=== PATIENT | female | born 1960 | race Caucasian/White ===

== ENCOUNTER 2020-03-16 13:43 | Emergency (ER) | payer OTHER, SELFPAY ==
[2020-03-16] VITALS (18 sets, daily range): BP systolic 91–133; BP diastolic 60–90; PULSE 82–92; RESP 18–27; TEMP 36.4; O2SAT 90–96
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
--- NOTE | 2020-03-16 13:54 | ECG_ITS ---
Measurements Intervals [place] Rate: 63 P: 16 OK: 146 QRS: -21 QRSD: 97 T: 56 QT: 378 QTc: 388 Interpretive Statements SINUS RHYTHM LOW QRS VOLTAGE IN PRECORDIAL LEADS POOR R WAVE PROGRESSION, ANTERIOR LEADS BORDERLINE T WAVE ABNORMALITY- ANTERIOR LEADS BASELINE WANDER- V4 BORDERLINE ECG Electronically Signed On 03-16-2020 14:47:04 CDT by Sameer Li D.O.
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
[2020-03-16 14:31] LABS: Lipase 61 U/L (23-300)
[2020-03-16] MEDS: MORPHINE SULFATE 4 MG/ML INJ IV PUSH (14:35)
[2020-03-16 14:45] LABS: NT Pro B Type Natriuretic Pept 73 PG/ML (5-100); Troponin I < 0.012 ng/mL (0.000-0.034)
[2020-03-16 14:48] LABS: Basophils Absolute Auto 0.1 K/mm3 (0.0-0.1); Basophils Percent Auto 0.5 % (0.2-1.2); Eosinophils Absolute Auto 0.1 K/mm3 (0-0.3); Eosinophils Percent Auto 0.7 % (0-4.4); Hematocrit 45.7 % (37.0-47.0); Hemoglobin 14.8 g/dL (12.0-15.0); Immature Granulocyte Percent A 1.5 % (0-0.5); Lymphocytes Absolute Auto 1.01 K/mm3 (0.9-3.2); Lymphocytes Percent Auto 7.3 % (18.3-44.2); Mean Corpuscular HGB Conc 32.4 g/dl (32-36); Mean Corpuscular Hemoglobin 28.6 pg (26-34); Mean Corpuscular Volume 88.2 fl (80-100); Monocytes Absolute Auto 0.7 K/mm3 (0.1-0.6); Neutrophils Absolute Auto 11.7 K/mm3 (1.3-6.7); Platelet Count Result 267 k/mm3 (150-375); Red Blood Count 5.18 M/mm3 (4.2-5.4); Red Cell Distribution Width 12.4 % (11.5-14.5); White Blood Count 13.8 K/mm3 (4.5-10.0)
[2020-03-16 14:58] LABS: Prothrombin Time 13.1 Seconds (11.1-14.7)
[2020-03-16 15:55] LABS: Alanine Aminotransferase 28 U/L (4-35); Albumin Level 3.9 g/dL (3.5-5.1); Alkaline Phosphatase 105 U/L (38-126); Aspartate Amino Transferase 38 U/L (14-36); Bilirubin,Total 0.3 mg/dL (0.2-1.3); Blood Urea Nitrogen 15 mg/dL (7-17); Carbon Dioxide 24 mmol/L (22-30); Chloride 107 mmol/L (98-107); Estimated CRCL calculation 102 ml/min; Estimated Glomerular Filt Rate > 60; Glucose 224 mg/dL (65-105); Potassium 3.6 mmol/L (3.4-5.0); Sodium 138 mmol/L (137-145)
--- NOTE | 2020-03-19 19:28 | PC.NURSE ---
note for 03/16/2020: Pt had short R wrist splint applied. Pt circulation in tact. Pt informed on splint care.
== END 2020-03-16 19:12 | disposition home or self-care (01) ==
PROVIDERS: Emergency Provider Emergency Medicine
DX: S52.571A Other intraarticular fracture of lower end of right radius, initial encounter for closed fracture (principal); S62.326A Displaced fracture of shaft of fifth metacarpal bone, right hand, initial encounter for closed fracture; S22.080A Wedge compression fracture of T11-T12 vertebra, initial encounter for closed fracture; Z87.891 Personal history of nicotine dependence; I95.9 Hypotension, unspecified; R94.31 Abnormal electrocardiogram [ECG] [EKG]; R91.8 Other nonspecific abnormal finding of lung field; K57.90 Diverticulosis of intestine, part unspecified, without perforation or abscess without bleeding; K76.89 Other specified diseases of liver; I31.8 Other specified diseases of pericardium; V43.52XA Car driver injured in collision with other type car in traffic accident, initial encounter
CPT/HCPCS: 29125; 36415; 71260; 73110; 73120; 73562; 80053; 83690; 83880; 84484; 85025; 85610; 93005; 96374; 99284; A4565; A9270; J2270; Q9967